=== PATIENT | male | born 1965 | race Caucasian/White ===

== ENCOUNTER → 2018-05-01 | Outpatient (CLI) | payer OTHER | END | disposition home or self-care (01) | LOC: CFH 09:08 | PROVIDERS: ATTEND Nurse Practitioner Family | DX: K42.9 Umbilical hernia without obstruction or gangrene (principal); Z68.31 Body mass index [BMI] 31.0-31.9, adult | CPT/HCPCS: 76705 ==

== ENCOUNTER 2018-08-17 09:27 | Emergency (ER) | payer OTHER ==
[~2018-08-17] VITALS: Ht 180.3 cm; Wt 105.0 kg
[2018-08-17] MEDS ORDERED: KETOROLAC 30 MG/1 ML IM ONE (10:00)
[2018-08-17] MEDS ORDERED: DIAZEPAM 5 MG TABLET PO ONE (10:00)
[2018-08-17] MEDS ORDERED: DIAZEPAM 5 MG TABLET ONE (10:07)
[2018-08-17] MEDS ORDERED: KETOROLAC 30 MG/1 ML ONE (10:07)
[2018-08-17] MEDS ORDERED: HYDROcodone/APAP 5/325 TABLET ONE (11:16)
[2018-08-17] MEDS ORDERED: HYDROcodone/APAP 5/325 TABLET PO ONE (11:30)
[2018-08-17 11:51] VITALS: BP 144/89
== END 2018-08-17 11:55 | disposition home or self-care (01) ==
LOC: ED 11:52
DX: S39.012A Strain of muscle, fascia and tendon of lower back, initial encounter (principal); M51.36 Other intervertebral disc degeneration, lumbar region; X58.XXXA Exposure to other specified factors, initial encounter; Y93.89 Activity, other specified; Y92.89 Other specified places as the place of occurrence of the external cause; Y99.8 Other external cause status
CPT/HCPCS: 72110; 96372; 99283; J1885